=== PATIENT | female | born 1990 | race Native Hawaiian/Other Pacific Islander ===

== ENCOUNTER 2016-04-26 13:32 | Emergency (ER) | payer OTHER ==
[~2016-04-26] VITALS: Ht 157.5 cm; Wt 66.2 kg
[2016-04-26 13:33] VITALS: BP 128/70; TEMP 98.2
== END 2016-04-26 14:28 | disposition left against medical advice (07) ==
LOC: ED 14:28
DX: R50.9 Fever, unspecified (principal); Z33.1 Pregnant state, incidental
CPT/HCPCS: 99281

== ENCOUNTER 2016-04-26 18:21 | Emergency (ER) | payer OTHER ==
[~2016-04-26] VITALS: Ht 157.5 cm; Wt 66.2 kg
[2016-04-26 19:49] VITALS: BP 116/76; TEMP 97.6
== END 2016-04-26 19:50 | disposition home or self-care (01) ==
LOC: ED 18:21
DX: J06.9 Acute upper respiratory infection, unspecified (principal)
CPT/HCPCS: 99284

== ENCOUNTER 2019-12-04 13:47 | Outpatient (CLI) | payer OTHER | END 2019-12-04 20:59 | disposition home or self-care (01) | LOC: RAD 13:47 | DX: M54.41 Lumbago with sciatica, right side (principal); Z87.39 Personal history of other diseases of the musculoskeletal system and connective tissue ==

== ENCOUNTER 2021-04-21 13:42 | Outpatient (CLI) | payer OTHER | END 2021-04-21 19:04 | disposition home or self-care (01) | LOC: MRI 13:42 | PROVIDERS: ATTEND Specialist | DX: G93.0 Cerebral cysts (principal) | CPT/HCPCS: A9576 ==

== ENCOUNTER 2022-10-23 19:52 | Emergency (ER) | payer OTHER ==
[~2022-10-23] VITALS: Ht 157.5 cm; Wt 65.8 kg
[2022-10-23 20:32] LABS: PLATELET COUNT 383 K/uL (152-353)
[2022-10-23 20:34] LABS: POTASSIUM 3.5 mmol/L (3.6-5.2)
[2022-10-23 23:20] VITALS: TEMP 98.2
[2022-10-23 23:42] LABS: PLATELET COUNT 292 K/uL (152-353)
[2022-10-24 02:50] VITALS: BP 117/86
== END 2022-10-24 02:50 | disposition other institution (70) ==
LOC: ED 19:52
PROVIDERS: Family Medicine
DX: R45.851 Suicidal ideations (principal); F32.A Depression, unspecified; F17.210 Nicotine dependence, cigarettes, uncomplicated
CPT/HCPCS: 36415; 80053; 80143; 80179; 80307; 80320; 81000; 81025; 85027; 87086; 87088; 87635; 93005; 96361; 96365; 99285; J0696; U0003